=== PATIENT | male | born 1945 | race Caucasian/White ===

== ENCOUNTER → 2016-11-04 | Outpatient (CLI) | payer BC, OTHER ==
[~2016-11-04] MED LIST: ACET-1256 PO; AMAN100C18 PO; ASPI81CH2 PO; AZL/5 PO; CARB25TA12 PO; CITA20TA4 PO; CITA40TA4 PO; CLON0.5T3 PO; CLON1TAB3 PO; DOCU-94 PO; LINA1CAP PO; LIVALO PO; MELO15TA10 PO; PANT40TA PO; PRLSR20 PO; ROPI0.5T15 PO; ROPI2TAB6 PO; SENN-65 PO; SILD100T PO; SIMV20TA2 PO; TAMS0.4C38 PO; TRIH2TAB2 PO
[2016-11-04 13:33] LABS: BLOOD UREA NITROGEN 18 mg/dl (7-18); BUN/CREATININE RATIO 13.7 (10-20); CALCIUM 8.9 mg/dl (8.5-10.1); CARBON DIOXIDE 28 mmol/L (21-32); CHLORIDE 105 mmol/L (98-107); GLUCOSE 93 mg/dl (70-99); SODIUM 141 mmol/L (136-145)
[2016-11-04 13:39] LABS: ALT/SGPT 11 U/L (12-78); AST/SGOT 14 U/L (15-37); CHOLESTEROL 202 mg/dl (0-200); CHOLESTEROL/HDL RATIO 3.4; HDL CHOLESTEROL 59 mg/dl; LDL CHOLESTEROL CALCULATED 123 mg/dl; TRIGLYCERIDES 102 mg/dl (0-150); VERY LOW DENSITY LIPOPROT CALC 20 mg/dl
== END | disposition home or self-care (01) ==
LOC: C.LABMFLN 09:59
PROVIDERS: ATTEND Family Medicine
DX: E78.00 Pure hypercholesterolemia, unspecified (principal); I10 Essential (primary) hypertension; Z12.5 Encounter for screening for malignant neoplasm of prostate

== ENCOUNTER → 2017-03-17 | Day surgery (SDC) | payer BC, OTHER ==
[2017-03-10 11:17] VITALS: Ht 179.1 cm; Wt 86.4 kg
[~2017-03-17] VITALS: Ht 179.1 cm; Wt 86.4 kg
[~2017-03-17] MED LIST changes: +LIDOCAINE HCL 2% 2 ML VIAL (20MG/ML) ONE; +PROPOFOL IV EMULSION 10 MG/ML 20 ML VIAL IV ONE; +SODIUM CHLORIDE 0.9% 500ML 500 ML IV ONE
--- NOTE | 2017-03-17 09:31 | Endo History and Physical ---
History & Physical Date of Service: March 17, 2017. Chief Complaint: Screening Referring Physician: Dr. Cardoza History of Present Illness 71 yo CM who presents for screening colonoscopy. Past Surgical History Hx Cardiac Surgery: No Hx Internal Defibrillator: No Hx Pacemaker: No Hx Abdominal Surgery: Yes (APPY) Hx of Implantable Prosthesis: No Hx Post-Op Nausea and Vomiting: No Hx Cancer Surgery: No Hx Thoracic Surgery: No Hx Orthopedic: No Hx Urinary Tract Surgery: No Family History IBD Social History Smoking Status: Former Smoker Hx Substance Use: No Hx Alcohol Use: No Allergies Coded Allergies: Sulfa Antibiotics (Verified Allergy, Unknown, RASH, 03/17/17) Current Medications Reported Home Medications Medications Dose Route/Sig Max Daily Dose Days Date Category Klonopin (Clonazepam) 1 Mg Tab 0.5-1 Tab PO HS PRN 03/10/17 Reported Viagra (Sildenafil Citrate) 100 Mg Tab 100 Mg PO PRN 03/10/17 Reported Linzess (Linaclotide) 145 Mcg Cap 1 Cap PO QAM 03/10/17 Reported Flomax (Tamsulosin Hcl) 0.4 Mg Cap 0.4 Mg PO HS 03/10/17 Reported [Livalo] 2 Mg PO HS 03/10/17 Reported Mobic (Meloxicam) 15 Mg Tab 15 Mg PO DAILY PRN 03/10/17 Reported Citalopram Hydrobromide 40 Mg Tab 1 Tab PO QAM 03/10/17 Reported Amantadine Hcl (Amantadine HCl) 100 Mg Cap 100 Mg PO TID 03/10/17 Reported Requip (Ropinirole HCl) 0.5 Mg Tab 0.5 Mg PO TID 03/10/17 Reported Sinemet 25MG/100MG (Carbidopa/Levodopa) Tab 2 Tab PO QID 03/10/17 Reported Prilosec (Omeprazole) 20 Mg Capcr 40 Mg PO QAM 03/10/17 Reported Vital Signs Weight (Kilograms): 86.36 Height (Feet): 5 Height (Inches): 10.5 Physical Exam General Appearance: WD/WN, no apparent distress Respiratory/Chest: Auscultation: breath sounds normal Cardiovascular: Heart Auscultation: RRR Abdomen: Bowel Sounds: normal Inspection & Palpation: soft, non-distended, no tenderness, guarding & rebound Assessment and Plan Assessment: 71 yo CM who presents for screening colonoscopy. Plan: Proceed with colonoscopy.
--- NOTE | 2017-03-17 10:26 | Discharge Instructions ---
Endoscopy Patient Instructions Date / Procedure(s) Performed March 17, 2017. Colonoscopy Allergy Information Coded Allergies: Sulfa Antibiotics (Verified Allergy, Unknown, RASH, 03/17/17) Discharge Date / Findings March 17, 2017. Colon polyps Rectal polyp Internal hemorrhoids Medication Instructions Stopped Medication(s): All meds stopped except Cabidopa and Citalopram. OK to resume all medications today as prescribed Reported Home Medications Medications Dose Route/Sig Max Daily Dose Days Date Category Klonopin (Clonazepam) 1 Mg Tab 0.5-1 Tab PO HS PRN 03/10/17 Reported Viagra (Sildenafil Citrate) 100 Mg Tab 100 Mg PO PRN 03/10/17 Reported Linzess (Linaclotide) 145 Mcg Cap 1 Cap PO QAM 03/10/17 Reported Flomax (Tamsulosin Hcl) 0.4 Mg Cap 0.4 Mg PO HS 03/10/17 Reported [Livalo] 2 Mg PO HS 03/10/17 Reported Mobic (Meloxicam) 15 Mg Tab 15 Mg PO DAILY PRN 03/10/17 Reported Citalopram Hydrobromide 40 Mg Tab 1 Tab PO QAM 03/10/17 Reported Amantadine Hcl (Amantadine HCl) 100 Mg Cap 100 Mg PO TID 03/10/17 Reported Requip (Ropinirole HCl) 0.5 Mg Tab 0.5 Mg PO TID 03/10/17 Reported Sinemet 25MG/100MG (Carbidopa/Levodopa) Tab 2 Tab PO QID 03/10/17 Reported Prilosec (Omeprazole) 20 Mg Capcr 40 Mg PO QAM 03/10/17 Reported Provider Instructions Activity Restrictions - No exercising or heavy lifting for 24 hours. - Do not drink alcohol the day of the procedure. - Do not drive a car or operate machinery until the day after the procedure. - Do not make any important decisions or sign important papers in 24 hours after the procedure. Following Day: - Return to full activity which may include returning to work/school. Diet Start your diet with liquids and light foods (jello, soup, juice, toast). Then eat your usual diet if not nauseated. Treatment For Common After Affects For mild abdominal pain, bloating, or excessive gas: - Rest - Eat lightly - Lie on right side Follow-Up Information Follow-up with Dr. Cardoza as scheduled Anesthesia Information What You Should Know You have had a procedure that required some medicine to reduce anxiety and discomfort. This treatment is called moderate sedation. After receiving the treatment, you may be sleepy, but you will be able to breathe on your own. The effects of the treatment may last for several hours. Follow these instructions along with Activity/Diet recommendations noted above: * Do NOT do anything where dizziness or clumsiness would be dangerous. * Rest quietly at home today, then you can be up and about tomorrow. * Have a responsible person stay with you the rest of today. * You may have had an I.V. today. If so, you may take the dressing off later today. Recommendations Call your doctor if: * Trouble breathing * Continuous vomiting for more than 24 hours * Temperature above 101 degrees * Severe abdominal pain or bloating * Pain not relieved by pain medicine ordered * There is increased drainage or redness from any incision * A large amount of rectal bleeding greater than 2-3 tablespoons. (If you had a polyp/s removed or have hemorrhoids, a small amount of blood - from the rectum is to be expected.) * You have any unanswered questions or concerns. IN THE EVENT OF A SERIOUS EMERGENCY, GO TO THE NEAREST EMERGENCY ROOM Your discharge instructions were prepared by provider Jam Estevez. Patient Instructions Signature Page Juan Mcfarland Patient (or Guardian) Signature/Date: I have read and understand the instructions given to me by my caregivers. Caregiver/RN/Doctor Signature/Date: The above-named patient and/or guardian has received patient instructions on this date. + Original Patient Signature Page (only) stays with chart. Please make copy for patient.
--- NOTE | 2017-03-17 10:30 | GI REPORT ---
Procedure Date: 03/17/2017 9:57 AM Procedure: Colonoscopy Indications: Screening for colorectal malignant neoplasm Medicines: Monitored Anesthesia Care Complications: No immediate complications. Estimated Blood Loss: Estimated blood loss: none. Procedure: Pre-Anesthesia Assessment: - Prior to the procedure, a History and Physical was performed, and patient medications and allergies were reviewed. The patient's tolerance of previous anesthesia was also reviewed. The risks and benefits of the procedure and the sedation options and risks were discussed with the patient. All questions were answered, and informed consent was obtained. Prior Anticoagulants: The patient has taken no previous anticoagulant or antiplatelet agents. ASA Grade Assessment: III - A patient with severe systemic disease. After reviewing the risks and benefits, the patient was deemed in satisfactory condition to undergo the procedure. After I obtained informed consent, the scope was passed under direct vision. Throughout the procedure, the patient's blood pressure, pulse, and oxygen saturations were monitored continuously. The Scope was introduced through the anus and advanced to the terminal ileum. The colonoscopy was performed without difficulty. The patient tolerated the procedure well. The quality of the bowel preparation was good. The terminal ileum, ileocecal valve, appendiceal orifice, and rectum were photographed. Findings: Three sessile polyps were found in the rectum, in the descending colon and in the ascending colon. The polyps were 4 to 6 mm in size. These polyps were removed with a hot snare. Resection and retrieval were complete. Non-bleeding internal hemorrhoids were found during retroflexion. The hemorrhoids were small. Impression: - Three 4 to 6 mm polyps in the rectum, in the descending colon and in the ascending colon, removed with a hot snare. Resected and retrieved. - Non-bleeding internal hemorrhoids. Recommendation: - Resume previous diet. - Continue present medications. - Repeat colonoscopy for surveillance based on pathology results. - Return to primary care physician as previously scheduled. Jam Estevez DO 03/17/2017 10:30:22 AM This report has been signed electronically. Note Initiated On: 03/17/2017 9:57 AM I attest to the content of the Intraoperative Record and orders documented therein, exceptions below
--- NOTE | 2017-03-17 10:39 | Anesthesiology Progress Note ---
Anesthesia Post Op Note Date & Time March 17, 2017 at 10:39 Vital Signs Pain Intensity: 1 Vital Signs Past 12 Hours Date Time Temp Pulse Resp B/P Pulse Ox O2 Delivery O2 Flow Rate FiO2 03/17/17 10:36 79 16 117/80 96 Room Air 03/17/17 10:21 73 16 106/78 98 Room Air 03/17/17 09:37 36.5 89 20 174/89 98 Room Air Notes Mental Status: alert / awake / arousable, participated in evaluation Pt Amnestic to Procedure: Yes Nausea / Vomiting: adequately controlled Pain: adequately controlled Airway Patency, RR, SpO2: stable & adequate BP & HR: stable & adequate Hydration State: stable & adequate Anesthetic Complications: no major complications apparent
[2017-03-17 10:51] VITALS: BP 144/88; PULSE 78; O2SAT 96
== END | disposition home or self-care (01) ==
LOC: C.GI 08:53
PROVIDERS: ATTEND Internal Medicine
DX: Z12.11 Encounter for screening for malignant neoplasm of colon (principal); D12.4 Benign neoplasm of descending colon; D12.2 Benign neoplasm of ascending colon; D12.8 Benign neoplasm of rectum; K64.8 Other hemorrhoids; Z87.891 Personal history of nicotine dependence

== ENCOUNTER → 2017-04-04 | Outpatient (CLI) | payer BC ==
[~2017-04-04] MED LIST changes: -LIDOCAINE HCL 2% 2 ML VIAL (20MG/ML) ONE; -PROPOFOL IV EMULSION 10 MG/ML 20 ML VIAL IV ONE; -SODIUM CHLORIDE 0.9% 500ML 500 ML IV ONE
== END | disposition home or self-care (01) ==
LOC: C.LABMFLN 10:56
PROVIDERS: ATTEND Family Medicine
DX: B35.1 Tinea unguium (principal)

== ENCOUNTER → 2017-04-08 | Outpatient (CLI) | payer BC ==
[2017-04-08 13:31] LABS: ALT/SGPT 10 U/L (12-78); AST/SGOT 12 U/L (15-37); BLOOD UREA NITROGEN 15 mg/dl (7-18); BUN/CREATININE RATIO 13.9 (10-20); CALCIUM 8.3 mg/dl (8.5-10.1); CARBON DIOXIDE 25 mmol/L (21-32); CHLORIDE 108 mmol/L (98-107); GLUCOSE 95 mg/dl (70-99); POTASSIUM 3.7 mmol/L (3.5-5.1); SODIUM 142 mmol/L (136-145)
[2017-04-08 13:42] LABS: ALB/GLOB RATIO 1.4 (0.9-2); ALKALINE PHOSPHATASE 85 U/L (45-117); CHOLESTEROL 160 mg/dl (0-200); CHOLESTEROL/HDL RATIO 3.5; HDL CHOLESTEROL 46 mg/dl; LDL CHOLESTEROL CALCULATED 94 mg/dl; THYROID STIMULATING HORMONE 0.954 uIu/ml (0.300-4.500); TRIGLYCERIDES 100 mg/dl (0-150); VERY LOW DENSITY LIPOPROT CALC 20 mg/dl
== END | disposition home or self-care (01) ==
LOC: C.LABMFLN 11:54
PROVIDERS: ATTEND Family Medicine
DX: E78.5 Hyperlipidemia, unspecified (principal); I10 Essential (primary) hypertension; R63.4 Abnormal weight loss

== ENCOUNTER 2017-05-10 17:43 | Emergency (ER) | payer BC, OTHER ==
[~2017-05-10] VITALS: Ht 175.3 cm; Wt 85.1 kg
[~2017-05-10 17:43] MED LIST changes: -ACET-1256 PO; -ASPI81CH2 PO; -AZL/5 PO; -CITA20TA4 PO; -CLON0.5T3 PO; -DOCU-94 PO; -PANT40TA PO; -ROPI2TAB6 PO; -SENN-65 PO; -SIMV20TA2 PO; -TRIH2TAB2 PO
[2017-05-10 17:53] VITALS: TEMP 36.8; O2SAT 96; Ht 175.3 cm; Wt 85.1 kg
[2017-05-10] MEDS ORDERED: SODIUM CHLORIDE 0.9% 1000ML 1,000 ML IV STA (18:56)
[2017-05-10] MEDS ORDERED: ASPI81CH2 PO (18:57)
[2017-05-10] MEDS ORDERED: CITA20TA4 PO (18:59)
[2017-05-10] MEDS ORDERED: PANT40TA PO (19:00)
[2017-05-10] MEDS ORDERED: AZL/5 PO (19:02)
[2017-05-10] MEDS ORDERED: ROPI2TAB6 PO (19:03)
[2017-05-10] MEDS ORDERED: SIMV20TA2 PO (19:06)
[2017-05-10 19:08] LABS: BASO % 0.3 %; BASO ABS # 0.02 K/uL (0-0.2); COMPLETE YES; EOS % 0.8 %; HEMATOCRIT 46.3 % (42-52); IG% 0.1 %; LYMPH % 18.8 %; MEAN CELL VOLUME 91.1 fL (80-100); MEAN CORPUSCULAR HEMOGLOBIN 31.7 pg (25-34); MEAN CORPUSCULAR HGB CONC 34.8 g/dl (32-36); MEAN PLATELET VOLUME 9.8 fL (7.4-10.4); PLATELET COUNT 206 K/uL (130-400); RED BLOOD COUNT 5.08 M/uL (4.7-6.1); WHITE BLOOD COUNT 7.45 K/uL (4.8-10.8)
[2017-05-10] MEDS ORDERED: TRIH2TAB2 PO (19:10)
[2017-05-10 19:11] LABS: URINE APPEARANCE CLEAR (CLEAR); URINE BILIRUBIN NEG (NEG); URINE COLOR YELLOW; URINE EPITHELIAL CELL AUTO 0-5 /lpf (0-5); URINE NITRITE NEG (NEG); URINE PH 5.5 (4.5-7.5); URINE SPECIFIC GRAVITY 1.018 (1.000-1.030); UROBILINOGEN NEG (NEG); ZZUR CULT IF INDIC CLEAN CATCH NO
[2017-05-10] MEDS ORDERED: SENN-65 PO (19:12)
[2017-05-10] MEDS ORDERED: DOCU-94 PO (19:12)
[2017-05-10 19:14] LABS: BLOOD UREA NITROGEN 17 mg/dl (7-18); BUN/CREATININE RATIO 15.9 (10-20); CALCIUM 9.1 mg/dl (8.5-10.1); CARBON DIOXIDE 31 mmol/L (21-32); CHLORIDE 101 mmol/L (98-107); GLUCOSE 118 mg/dl (70-99); POTASSIUM 3.8 mmol/L (3.5-5.1); SODIUM 138 mmol/L (136-145)
[2017-05-10] MEDS ORDERED: CLON0.5T3 PO (19:14)
[2017-05-10] MEDS ORDERED: ACET-1256 PO (19:17)
[2017-05-10 19:19] LABS: CKMB/CK RATIO 1.7 (0-3.0)
--- NOTE | 2017-05-10 19:24 | DIAGNOSTIC IMAGING REPORT ---
CHEST ONE VIEW PORTABLE CLINICAL HISTORY: EVALUATE ALTERED MENTAL STATUS/WEAKNESS dyspnea COMPARISON STUDY: No previous studies for comparison. FINDINGS: The bones soft tissues and hemidiaphragms are normal. The cardiomediastinal silhouette is normal. The lungs are clear. The pulmonary vasculature is normal. IMPRESSION: Negative chest. The above report was generated using voice recognition software. It may contain grammatical, syntax or spelling errors. Electronically signed by: Moshe Ramos M.D. 05/10/2017 7:23 PM Dictated Date/Time: 05/10/2017 7:23 PM
--- NOTE | 2017-05-10 19:31 | DIAGNOSTIC IMAGING REPORT ---
HEAD WITHOUT CONTRAST (CT) CT DOSE: 614.27 mGy.cm HISTORY: Weakness. Mental status change. EVALUATE ALTERED MENTAL STATUS/WEAKNESS TECHNIQUE: Multiaxial CT images of the head were performed without the use of intravenous contrast. Comparison: None. Findings: Right maxillary sinus is opacified. The remaining sinuses are generally clear. The mastoid air cells are clear. The calvarium and skull base are intact. The ventricles and sulci are within normal limits. There is no mass, hematoma, midline shift, or acute infarct. Mild chronic small vessel change of aging Impression: Age-related change. No acute intracranial abnormality. Opacified right maxillary sinus The above report was generated using voice recognition software. It may contain grammatical, syntax or spelling errors. Electronically signed by: Moshe Ramos M.D. 05/10/2017 7:30 PM Dictated Date/Time: 05/10/2017 7:29 PM
[2017-05-10 19:52] LABS: MANUAL MICROSCOPIC REQUIRED? NO; REVIEW REQ? NO
--- NOTE | 2017-05-10 20:14 | EMERGENCY ROOM VISIT NOTE ---
History Report prepared by Angélica: Amy Cisneros Under the Supervision of: Dr. Asad Rosenthal D.O. First contact with patient: 17:48 Chief Complaint: CONFUSION Stated Complaint: AMS Nursing Triage Summary: Pt arrives by BLS from [facility]. Per [facility], pt wandered away this morning and was found at the end of the driveway. Pt has Parkinsons and is at [facility] for OT and PT post concussion. This was his first day at [facility]. Pt's and daughter in room, reports pt had a fall last friday, was seen at [facility], had a CT and dx with concussion. Pt was then admitted, dc'd to [facility] for therapy. Pt denies any pain currently. awake, alert to person and place. History of Present Illness The patient is a 72 year old male who presents to the Emergency Room via BLS from [facility] with complaints of worsened altered mental status. The patient has a history of Parkinson's disease. 3 days ago, the patient had a fall and he was admitted to [facility]. He had an extensive work up with negative results. He was diagnosed with concussion and was discharged to [facility] 2 days ago. It was suspected that his Parkinson's was likely contributing to frequent falls. Since the fall 3 days ago, the patient has been having confusion and memory loss. Today, the patient wandered out of [facility] wanting to go home. He was sent to the Emergency Room by [facility] staff. The patient's daughter believes that the patient's altered mental status has worsened since he was discharged to [facility]. He seems different than the way he was at [facility]. The patient's focus waxes and wanes. He sometimes speaks clearly and seems lucid while other times he speaks nonsensically. HPI is limited secondary to altered mental status. Additional history of obtained as per family. Source of History: family, spouse/significant other History Limited By: AMS Position: other (global) Quality: other (altered mental status) Timing: other (worsened) Review of Systems ROS is limited secondary to altered mental status. Past Medical & Surgical Medical Problems: (1) Parkinson disease Family History Patient reports no known family medical history. Social History Smoking Status: Unknown if Ever Smoked Marital Status: Occupation Status: retired Current/Historical Medications Scheduled Aspirin (Aspirin), 1 TAB PO DAILY Carbidopa/Levodopa (Sinemet 25MG/100MG), 1 TAB PO QID Citalopram Hydrobromide (Citalopram Hydrobromide), 20 MG PO DAILY Clonazepam (Klonopin), 0.5 MG PO BID Docusate Sodium (Colace), 100 MG PO BID Pantoprazole (Protonix), 40 MG PO DAILY Rasagiline (Azilect), 1 MG PO DAILY Ropinirole (Requip), 2 MG PO TID Senna/Docusate Sod (Senokot S), 1 TAB PO DAILY Simvastatin (Zocor), 20 MG PO QDD Trihexyphenidyl Hcl (Artane), 1 MG PO TID Scheduled PRN Acetaminophen (Tylenol), 500 MG PO Q4 PRN for Pain or Fever Allergies Coded Allergies: Sulfa Antibiotics (Verified Allergy, Unknown, RASH, 05/10/17) Physical Exam Vital Signs Date Time Temp Pulse Resp B/P (MAP) Pulse Ox O2 Delivery O2 Flow Rate FiO2 05/10/17 19:34 77 05/10/17 19:27 80 21 138/79 97 Room Air 05/10/17 18:41 83 20 143/92 97 Room Air 05/10/17 17:53 36.8 88 20 143/92 96 Room Air 05/10/17 17:53 96 Room Air Physical Exam VITAL SIGNS: were reviewed as above. GENERAL:Non-toxic in appearance. SKIN: Warm dry and pink. HEAD: Normocephalic and atraumatic. OROPHARYNX: Is clear and moist NECK: Supple without lymphadenopathy or meningismus. LUNGS: clear. HEART: Regular rate and rhythm. ABDOMEN: Soft and nontender. EXTREMITIES: Warm and well perfused. NEUROLOGICALLY: Awake alert without focal deficit. Cranial nerves 2-12 are intact. There is no pronator drift. Cerebellar testing is within normal limits. There is no nystagmus. There is no facial droop. Speech is clear. Vision is grossly normal. Patient is oriented to person and place. At times patient speaks in a focused manner, has appropriate conversations. Other times he seems to speak of unrelated events that do not pertain to the conversation. MUSCULOSKELETAL: Good muscle tone. No evidence of trauma. Medical Decision & Procedures ER Provider Diagnostic Interpretation: X ray results and stated below per my interpretation and radiology interpretation. CHEST ONE VIEW PORTABLE CLINICAL HISTORY: EVALUATE ALTERED MENTAL STATUS/WEAKNESS dyspnea COMPARISON STUDY: No previous studies for comparison. FINDINGS: The bones soft tissues and hemidiaphragms are normal. The cardiomediastinal silhouette is normal. The lungs are clear. The pulmonary vasculature is normal. IMPRESSION: Negative chest. The above report was generated using voice recognition software. It may contain grammatical, syntax or spelling errors. Electronically signed by: Moshe Ramos M.D. 05/10/2017 7:23 PM Dictated Date/Time: 05/10/2017 7:[address] results as stated below per my review and radiologist interpretation: HEAD WITHOUT CONTRAST (CT) CT DOSE: 614.27 mGy.cm HISTORY: Weakness. Mental status change. EVALUATE ALTERED MENTAL STATUS/WEAKNESS TECHNIQUE: Multiaxial CT images of the head were performed without the use of intravenous contrast. Comparison: None. Findings: Right maxillary sinus is opacified. The remaining sinuses are generally clear. The mastoid air cells are clear. The calvarium and skull base are intact. The ventricles and sulci are within normal limits. There is no mass, hematoma, midline shift, or acute infarct. Mild chronic small vessel change of aging Impression: Age-related change. No acute intracranial abnormality. Opacified right maxillary sinus The above report was generated using voice recognition software. It may contain grammatical, syntax or spelling errors. Electronically signed by: Moshe Ramos M.D. 05/10/2017 7:30 PM Dictated Date/Time: 05/10/2017 7:29 PM Laboratory Results 05/10/17 18:37 Red Blood Count 5.08, Mean Corpuscular Volume 91.1, Mean Corpuscular Hemoglobin 31.7, Mean Corpuscular Hemoglobin Concent 34.8, Mean Platelet Volume 9.8, Neutrophils (%) (Auto) 71.0, Lymphocytes (%) (Auto) 18.8, Monocytes (%) (Auto) 9.0, Eosinophils (%) (Auto) 0.8, Basophils (%) (Auto) 0.3, Neutrophils # (Auto) 5.29, Lymphocytes # (Auto) 1.40, Monocytes # (Auto) 0.67, Eosinophils # (Auto) 0.06, Basophils # (Auto) 0.02 05/10/17 18:37 Test 05/10/17 18:37 05/10/17 18:40 White Blood Count 7.45 K/uL (4.8-10.8) Red Blood Count 5.08 M/uL (4.7-6.1) Hemoglobin 16.1 g/dL (14.0-18.0) Hematocrit 46.3 % (42-52) Mean Corpuscular Volume 91.1 fL (80-100) Mean Corpuscular Hemoglobin 31.7 pg (25-34) Mean Corpuscular Hemoglobin Concent 34.8 g/dl (32-36) Platelet Count 206 K/uL (130-400) Mean Platelet Volume 9.8 fL (7.4-10.4) Neutrophils (%) (Auto) 71.0 % Lymphocytes (%) (Auto) 18.8 % Monocytes (%) (Auto) 9.0 % Eosinophils (%) (Auto) 0.8 % Basophils (%) (Auto) 0.3 % Neutrophils # (Auto) 5.29 K/uL (1.4-6.5) Lymphocytes # (Auto) 1.40 K/uL (1.2-3.4) Monocytes # (Auto) 0.67 K/uL (0.11-0.59) Eosinophils # (Auto) 0.06 K/uL (0-0.5) Basophils # (Auto) 0.02 K/uL (0-0.2) RDW Standard Deviation 46.2 fL (36.4-46.3) RDW Coefficient of Variation 13.8 % (11.5-14.5) Immature Granulocyte % (Auto) 0.1 % Immature Granulocyte # (Auto) 0.01 K/uL (0.00-0.02) Urine Color YELLOW Urine Appearance CLEAR (CLEAR) Urine pH 5.5 (4.5-7.5) Urine Specific Anderson 1.018 (1.000-1.030) Urine Protein NEG (NEG) Urine Glucose (UA) NEG (NEG) Urine Ketones NEG (NEG) Urine Occult Blood NEG (NEG) Urine Nitrite NEG (NEG) Urine Bilirubin NEG (NEG) Urine Urobilinogen NEG (NEG) Urine Leukocyte Esterase NEG (NEG) Urine WBC (Auto) 1-5 /hpf (0-5) Urine RBC (Auto) 0-4 /hpf (0-4) Urine Hyaline Casts (Auto) 0 /lpf (0-5) Urine Epithelial Cells (Auto) 0-5 /lpf (0-5) Urine Bacteria (Auto) NEG (NEG) Anion Gap 6.0 mmol/L (3-11) Est Creatinine Clear Calc Drug Dose 64.7 ml/min Estimated GFR () 76.8 Estimated GFR (Non- 66.2 BUN/Creatinine Ratio 15.9 (10-20) Calcium Level 9.1 mg/dl (8.5-10.1) Total Creatine Kinase 111 U/L (39-308) Creatine Kinase MB 1.9 ng/ml (0.5-3.6) Creatine Kinase MB Ratio 1.7 (0-3.0) Troponin I < 0.015 ng/ml (0-0.045) Bedside Glucose 115 mg/dl (70-99) Laboratory results as stated above per my review. Medications Administered Medications (Trade) Dose Ordered Sig/David Route Start Time Stop Time Status Last Admin Dose Admin Sodium Chloride 1,000 ml @ 999 mls/hr Q1H1M STAT IV 05/10/17 18:56 05/10/17 19:56 DC 05/10/17 19:10 999 MLS/HR ECG Indication: altered mental status Rate (beats per minute): 85 Rhythm: normal sinus Findings: no acute ischemic change, no ectopy ED Course 174: Previous medical records were reviewed. The patient was evaluated in room C07. A complete history and physical examination was performed. 1856: Sodium Chloride 1000 ml @ 999 mls/hr IV 1950: I discussed the patient's case with Dr. Cotton, on-call physician at [facility]. I reviewed lab and radiology findings with him. He recommended discharging the patient to [facility]. 2001: On reevaluation, the patient is resting comfortably. I discussed the results and findings with the patient's family. They verbalized agreement of the treatment plan. The patient was discharged home. Medical Decision Medication Reconciliation: I attest that I have personally reviewed the patient' s current medication list. Blood pressure Screening: Patient was found to have an elevated blood pressure and was referred to their primary doctor for recheck and further treatment. Differential includes acute coronary syndrome, myocardial infarction, CVA, TIA, anemia, infection, pneumonia, UTI, pyelonephritis, poor nutrition, dehydration, electrolyte disturbance,hypoglycemia. This is a 72-year-old male who presents to the ED with a chief complaint of intermittent confusion. The patient presented from [facility]. He was reportedly confused there according to Dr. Thornton, who I spoke with. The patient was evaluated by him this morning. The patient had reportedly eloped from [facility]. He was walking down the driveway. It is unclear if he was injured but he was brought here for evaluation. There is no clinical findings to suggest acute trauma. The patient answers questions appropriately although at times his conversation appears to wander and seems unrelated to the current conversation. The patient's family states that this is new since his fall last week at home. He was evaluated and admitted at [facility] and had extensive workup there including carotid ultrasound, MRI of the brain, echocardiogram and blood work. A chest x-ray performed here did not reveal any acute process. The urine did not show infection. A CT scan of the brain showed a right maxillary sinus opacification but otherwise was negative for acute process. Blood work including a CBC and chemistry panel was unremarkable. Troponin was negative. EKG shows a normal sinus rhythm. The patient was told the results of the tests. His family was also told the results. I spoke with Dr. Thornton about the results. Plan is to send the patient back to [facility]. The patient has seen Dr. Rosales in the past. I recommended that the family to have follow-up with him for his symptoms. His symptoms could be related to a postconcussive syndrome. There is no evidence of acute infection or acute intracranial process as a cause for these symptoms. Consults Time Called: 1933 Consulting Physician: Dr. Cotton, on-call physician at [facility] Returned Call: 1949 I discussed the patient's case with Dr. Cotton, on-call physician at [facility]. I reviewed lab and radiology findings with him. He recommended discharging the patient to [facility]. Impression Primary Impression: Confusion Scribe Attestation The scribe's documentation has been prepared under my direction and personally reviewed by me in its entirety. I confirm that the note above accurately reflects all work, treatment, procedures, and medical decision making performed by me. Departure Information Dispostion Other ([facility]) Referrals Andreea Oreilly M.D. (PCP) Mao Rosales M.D. Forms HOME CARE DOCUMENTATION FORM, IMPORTANT VISIT INFORMATION, WORK / SCHOOL INSTRUCTIONS Patient Instructions My [facility] Additional Instructions Follow-up with Dr. Rosales for further evaluation of your symptoms. Go back to [facility] for continued evaluation there.
[2017-05-10 20:34] VITALS: BP 128/83; PULSE 76; O2SAT 96
== END 2017-05-10 20:35 | disposition home or self-care (01) ==
LOC: EDBD 17:43 → C.EDC 17:46
DX: R41.0 Disorientation, unspecified (principal); G20 Parkinson's disease; Z79.82 Long term (current) use of aspirin; Z79.899 Other long term (current) drug therapy; Z88.2 Allergy status to sulfonamides

== ENCOUNTER → 2017-07-29 | Outpatient (CLI) | payer BC ==
[~2017-07-29] MED LIST changes: +ACET-1256 PO; -AMAN100C18 PO; +ASPI81CH2 PO; +AZL/5 PO; +CITA20TA4 PO; -CITA40TA4 PO; +CLON0.5T3 PO; -CLON1TAB3 PO; +DOCU-94 PO; -LINA1CAP PO; -LIVALO PO; -MELO15TA10 PO; +PANT40TA PO; -PRLSR20 PO; -ROPI0.5T15 PO; +ROPI2TAB6 PO; +SENN-65 PO; -SILD100T PO; +SIMV20TA2 PO; -TAMS0.4C38 PO; +TRIH2TAB2 PO
== END | disposition home or self-care (01) ==
LOC: C.LABMFLN 16:41
PROVIDERS: ATTEND Family Medicine
DX: M70.20 Olecranon bursitis, unspecified elbow (principal)

== ENCOUNTER → 2017-11-10 | Outpatient (CLI) | payer BC, OTHER ==
[2017-11-10 12:35] LABS: BASO % 0.3 %; BASO ABS # 0.03 K/uL (0-0.2); EOS % 1.8 %; EOS ABS # 0.18 K/uL (0-0.5); HEMATOCRIT 48.1 % (42-52); HEMOGLOBIN 16.1 g/dL (14.0-18.0); IG# 0.02 K/uL (0.00-0.02); LYMPH % 13.7 %; LYMPH ABS # 1.41 K/uL (1.2-3.4); MEAN CELL VOLUME 92.5 fL (80-100); MEAN CORPUSCULAR HGB CONC 33.5 g/dl (32-36); MEAN PLATELET VOLUME 10.4 fL (7.4-10.4); MONO % 11.1 %; MONO ABS # 1.14 K/uL (0.11-0.59); NEUT % 72.9 %; NEUT ABS # 7.48 K/uL (1.4-6.5); PLATELET COUNT 200 K/uL (130-400); RED CELL DISTRIBUTION WIDTH CV 13.9 % (11.5-14.5); WHITE BLOOD COUNT 10.26 K/uL (4.8-10.8)
[2017-11-10 13:24] LABS: ALBUMIN 4.1 gm/dl (3.4-5.0); ALT/SGPT 9 U/L (12-78); BLOOD UREA NITROGEN 13 mg/dl (7-18); CALCIUM 8.9 mg/dl (8.5-10.1); CARBON DIOXIDE 30 mmol/L (21-32); CHOLESTEROL 119 mg/dl (0-200); CREATININE 1.07 mg/dl (0.60-1.40); GLUCOSE 97 mg/dl (70-99); POTASSIUM 3.9 mmol/L (3.5-5.1); SODIUM 139 mmol/L (136-145)
[2017-11-10 13:33] LABS: ALKALINE PHOSPHATASE 89 U/L (45-117); AST/SGOT 14 U/L (15-37); LDL CHOLESTEROL CALCULATED 56 mg/dl; TOTAL PROTEIN 7.2 gm/dl (6.4-8.2)
== END ==
LOC: C.LABMFLN 10:07
PROVIDERS: ATTEND Family Medicine
DX: E78.00 Pure hypercholesterolemia, unspecified (principal); I10 Essential (primary) hypertension; R53.82 Chronic fatigue, unspecified

== ENCOUNTER → 2018-02-17 | Outpatient (CLI) | payer BC, OTHER | END | disposition home or self-care (01) | LOC: C.LABMFLN 09:49 | PROVIDERS: ATTEND Family Medicine | DX: R97.20 Elevated prostate specific antigen [PSA] (principal) ==

== ENCOUNTER → 2018-05-20 | Outpatient (CLI) | payer BC, OTHER ==
[~2018-05-20] MED LIST changes: -CLON0.5T3 PO; +KLN/5 PO
[2018-05-20 19:04] LABS: ALKALINE PHOSPHATASE 59 U/L (45-117); ALT/SGPT 12 U/L (12-78); AST/SGOT 23 U/L (15-37); BLOOD UREA NITROGEN 13 mg/dl (7-18); CALCIUM 8.7 mg/dl (8.5-10.1); CARBON DIOXIDE 29 mmol/L (21-32); CHOLESTEROL 173 mg/dl (0-200); CREATININE 1.12 mg/dl (0.60-1.40); GLUCOSE 88 mg/dl (70-99); LDL CHOLESTEROL CALCULATED 95 mg/dl; POTASSIUM 4.2 mmol/L (3.5-5.1); SODIUM 139 mmol/L (136-145); TOTAL PROTEIN 6.9 gm/dl (6.4-8.2)
== END | disposition home or self-care (01) ==
LOC: C.LABMFLN 09:57
PROVIDERS: ATTEND Family Medicine
DX: E78.5 Hyperlipidemia, unspecified (principal); I10 Essential (primary) hypertension; G62.9 Polyneuropathy, unspecified; Z12.5 Encounter for screening for malignant neoplasm of prostate

== ENCOUNTER → 2018-06-10 | Outpatient (CLI) | payer BC, OTHER | END | disposition home or self-care (01) | LOC: C.LABMFLN 09:24 | PROVIDERS: ATTEND Family Medicine | DX: R32 Unspecified urinary incontinence (principal) ==